=== PATIENT | female | born 1935 | race Caucasian/White ===

== ENCOUNTER → 2017-12-16 | Outpatient (CLI) | payer MEDICARE | LOC: PLAB 13:42 | PROVIDERS: ATTEND Family Medicine | DX: R41.3 Other amnesia (principal) ==

== ENCOUNTER 2017-12-23 12:01 | Emergency (ER) | payer MEDICARE ==
[2017-12-23 12:04] VITALS: BP 194/78; PULSE 66; RESP 20; TEMP 98.7; O2SAT 99
[2017-12-23] MEDS ORDERED: VITATAB43 PO (12:09)
[2017-12-23] MEDS ORDERED: COMB0.2S EACH EYE (12:09)
[2017-12-23] MEDS ORDERED: SODIUM CHLORIDE 0.9% FLUSH 10 ML FLUSH IV FLUSH PRN (12:15)
[2017-12-23 12:22] VITALS: O2SAT 95
[2017-12-23 12:24] LABS: AUTOMATED NEUTROPHIL # 4.2 TH/MM3 (1.8-7.7); BASOPHIL # 0.1 TH/MM3 (0-0.2); BASOPHIL % 0.7 % (0.0-2.0); EOSINOPHIL # 0.1 TH/MM3 (0-0.4); EOSINOPHIL % 0.7 % (0.0-4.0); HEMATOCRIT 36.7 % (35.0-46.0); HEMOGLOBIN 11.9 GM/DL (11.6-15.3); LYMPH % 32.9 % (9.0-44.0); LYMPHOCYTE # 2.6 TH/MM3 (1.0-4.8); MEAN CELL VOLUME 91.2 FL (80.0-100.0); MEAN CORPUSCULAR HEMOGLOBIN 29.5 PG (27.0-34.0); MEAN CORPUSCULAR HGB CONC 32.3 % (32.0-36.0); MEAN PLATELET VOLUME 8.7 FL (7.0-11.0); MONO % 10.6 % (0.0-8.0); MONOCYTE # 0.8 TH/MM3 (0-0.9); NEUT % 55.1 % (16.0-70.0); PLATELET COUNT 177 TH/MM3 (150-450); RED BLOOD COUNT 4.03 MIL/MM3 (4.00-5.30); RED CELL DISTRIBUTION WIDTH 12.5 % (11.6-17.2); WHITE BLOOD COUNT 7.8 TH/MM3 (4.0-11.0)
[2017-12-23 12:35] LABS: CHLORIDE 106 MEQ/L (98-107); SODIUM (NA) 140 MEQ/L (136-145)
[2017-12-23 12:38] LABS: CALCIUM 8.8 MG/DL (8.5-10.1); PROTHROMBIN TIME - PATIENT 10.4 SEC (9.8-11.6)
[2017-12-23 12:39] LABS: ALBUMIN 3.6 GM/DL (3.4-5.0); BICARBONATE 27.3 MEQ/L (21.0-32.0); BLOOD UREA NITROGEN 23 MG/DL (7-18); GLUCOSE,RANDOM 92 MG/DL (74-106)
[2017-12-23 12:42] LABS: ALT (GPT) 28 U/L (10-53); AST (GOT) 36 U/L (15-37); CREATININE 0.76 MG/DL (0.50-1.00); GLOMERULAR FILTRATION RATE 73 ML/MIN (>89)
[2017-12-23 12:43] LABS: TOTAL BILIRUBIN ADULT 1.1 MG/DL (0.2-1.0)
--- NOTE | 2017-12-23 12:44 | RADRPT ---
EXAM DATE/TIME: 12/23/2017 12:26 [facility] COMPARISON: No previous studies available for comparison. INDICATIONS : Left hand pain post fall. MEDICAL HISTORY : Dementia. SURGICAL HISTORY : None. ENCOUNTER: Initial ACUITY: 3 days PAIN SCORE: Non-responsive. LOCATION: Left hand FINDINGS: 3 views of the left hand demonstrate no fracture or dislocation. The bones are undermineralized. 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 There is mild osteoarthritis at the first carpometacarpal joint. No soft tissue ab normality or concerning radiopaque foreign body is present. A ring is present on the fourth digit. CONCLUSION: No acute left hand abnormality is identified. The bones are undermineralized and there is mild osteoa rthritis at multiple joint spaces, as above. Abdoulaye Barrera MD on December 23, 2017 at 12:39 Board Certified Radiologist. This report was verified electronically.
[2017-12-23 12:45] LABS: ALKALINE PHOSPHATASE 64 U/L (45-117)
--- NOTE | 2017-12-23 12:46 | RADRPT ---
EXAM DATE/TIME: 12/23/2017 12:26 [facility] COMPARISON: No previous studies available for comparison. INDICATIONS : Pain post fall. MEDICAL HISTORY : Dementia. SURGICAL HISTORY : None. ENCOUNTER: Initial ACUITY: 3 days PAIN SCORE: Non-responsive. LOCATION: chest FINDINGS: A single view of the chest demonstrates the lungs to be symmetrically aerated with a faint miliary pa ttern throughout both lungs. No confluent infiltrates. The cardiomediastinal contours are unremarkab le. Osseous structures are intact with a levoscoliosis of the thoracolumbar spine. CONCLUSION: 1. No acute fracture/cardiopulmonary process. 2. Faint miliary pattern throughout both lungs. Findings are nonspecific. No confluent infiltrate. N oncontrasted CT scan of the chest be obtained for further characterization if clinically warranted. Montrell Floyd MD on December 23, 2017 at 12:38 Board Certified Radiologist. This report was verified electronically.
[2017-12-23 12:47] LABS: TROPONIN I LESS THAN 0.02 NG/ML (0.02-0.05)
--- NOTE | 2017-12-23 13:06 | RADRPT ---
EXAM DATE/TIME: 12/23/2017 12:42 [facility] COMPARISON: No previous studies available for comparison. INDICATIONS : Frequent falls. Dementia. RADIATION DOSE: 59.34 CTDIvol (mGy) MEDICAL HISTORY : Dementia. SURGICAL HISTORY : None. ENCOUNTER: Initial ACUITY: 1 day PAIN SCALE: 0/10 LOCATION: cranial TECHNIQUE: Multiple contiguous axial images were obtained of the head. Using automated exposure control and adj ustment of the mA and/or kV according to patient size, radiation dose was kept as low as reasonably a chievable to obtain optimal diagnostic quality images. DICOM format image data is available electro nically for review and comparison. FINDINGS: CEREBRUM: There is moderate generalized atrophy. Ventricles are mildly enlarged but within the range of expecte d given the degree of atrophy. There is mild periventricular white matter low attenuation. No eviden ce of midline shift, mass lesion, hemorrhage or acute infarction. No extra-axial fluid collections a re seen. POSTERIOR FOSSA: The cerebellum and brainstem are intact. The 4th ventricle is midline. The cerebellopontine angle i s unremarkable. EXTRACRANIAL: Visualized sinuses are clear. SKULL: The calvaria is intact. No evidence of skull fracture. CONCLUSION: 1. No acute intracranial abnormality is identified. 2. Chronic findings include generalized atrophy and periventricular white matter changes characterist ic of chronic microvascular ischemia. Abdoulaye Barrera MD on December 23, 2017 at 13:02 Board Certified Radiologist. This report was verified electronically.
[2017-12-23 13:12] VITALS: BP 144/63; PULSE 50; RESP 20; O2SAT 99
[2017-12-23 13:37] LABS: BILIRUBIN, URINE NEG (NEG); BLOOD, URINE TRACE (NEG); GLUCOSE,URINE NEG (NEG); KETONE, URINE TRACE mg/dL (NEG); NITRITE,URINE NEG (NEG); PH, URINE 6.5 (5.0-8.5); URINE LEUKOCYTE ESTERASE NEG (NEG)
--- NOTE | 2017-12-23 13:42 | PD ---
HPI Chief Complaint: Fall Time Seen by Provider: 12:09 Travel History International Travel<30 days: No Contact w/Intl Traveler<30days: No Traveled to known affect area: No History of Present Illness HPI Patient is an 82-year-old female brought in by EMS due to bruising of her left hand. Patient has a history of dementia and is unable to provide any history. Her family member who lives with her, states that she has been falling frequently over the past 10 days. She is went to see her primary care physician who ordered a MRI of her brain, which she was supposed to have done today. He says that she has been following, frequently at night. He says he often wakes up and finds her on the floor. Today he found her left hand to be purple and was not sure what had happened. He says that she often fights with him when he tries to take her to the doctor or to have anything done. He says she has otherwise been acting normally, but her mental status seems to be declining quickly. He does say that she has urinated on herself when she has fallen. [facility] Past Medical History Dementia: Yes Glaucoma: Yes Social History Alcohol Use: No Tobacco Use: No Substance Use: No Allergies-Medications (Allergen,Severity, Reaction): Coded Allergies: No Known Allergies (Unverified , 12/23/17) Reported Meds & Prescriptions Reported Meds & Active Scripts Active Reported Vitamin H92-Gbbds Acid (Cobalamine Combinations) 500-400 Mcg Tab 1 Tab PO DAILY Combigan Opth Drops (Brimonidine-Timolol Opth Drops) 0.2-0.5% Soln 1 Drop EACH EYE Q12HR Review of Systems ROS Limitations: Other: (Dementia) Physical Exam Narrative GENERAL: Awake and alert, pleasantly confused. SKIN: Focused skin assessment warm/dry. Ecchymosis to the left lateral hand. HEAD: Atraumatic. Normocephalic. EYES: Pupils equal and round. No scleral icterus. Extraocular movements intact. ENT: Mucous membranes pink and moist. NECK: Trachea midline. No JVD. CARDIOVASCULAR: Regular rate and rhythm. No murmur appreciated. RESPIRATORY: No accessory muscle use. Clear to auscultation. Breath sounds equal bilaterally. GASTROINTESTINAL: Abdomen soft, non-tender, nondistended. MUSCULOSKELETAL: No obvious deformities. No clubbing. No cyanosis. 2+ edema bilateral edema of the lower extremities. NEUROLOGICAL: Awake and alert to person only. No obvious cranial nerve deficits. Motor grossly within normal limits. Normal speech. Data Data Last Documented VS Vital Signs Date Time Temp Pulse Resp B/P (MAP) Pulse Ox O2 Delivery O2 Flow Rate FiO2 12/23/17 13:12 50 20 144/63 (90) 99 12/23/17 12:04 98.7 Orders Orders Electrocardiogram (12/23/17 12:10) Complete Blood Count With Diff (12/23/17 12:10) Comprehensive Metabolic Panel (12/23/17 12:10) Creatine Kinase (Cpk) (12/23/17 12:10) Prothrombin Time / Inr (Pt) (12/23/17 12:10) Act Partial Throm Time (Ptt) (12/23/17 12:10) Troponin I (12/23/17 12:10) Urinalysis - C+S If Indicated (12/23/17 12:10) Chest, Single Ap (12/23/17 12:10) Ct Brain W/O Iv Contrast(Rout) (12/23/17 12:10) Blood Glucose (12/23/17 12:10) Ecg Monitoring (12/23/17 12:10) Iv Access Insert/Monitor (12/23/17 12:10) Oximetry (12/23/17 12:10) Sodium Chloride 0.9% Flush (Ns Flush) (12/23/17 12:15) Hand, Complete (Uyn7ehr) (12/23/17 ) CKMB (12/23/17 12:15) CKMB% (12/23/17 12:15) Labs Laboratory Tests Test 12/23/17 12:15 12/23/17 13:30 White Blood Count 7.8 TH/MM3 Red Blood Count 4.03 MIL/MM3 Hemoglobin 11.9 GM/DL Hematocrit 36.7 % Mean Corpuscular Volume 91.2 FL Mean Corpuscular Hemoglobin 29.5 PG Mean Corpuscular Hemoglobin Concent 32.3 % Red Cell Distribution Width 12.5 % Platelet Count 177 TH/MM3 Mean Platelet Volume 8.7 FL Neutrophils (%) (Auto) 55.1 % Lymphocytes (%) (Auto) 32.9 % Monocytes (%) (Auto) 10.6 % Eosinophils (%) (Auto) 0.7 % Basophils (%) (Auto) 0.7 % Neutrophils # (Auto) 4.2 TH/MM3 Lymphocytes # (Auto) 2.6 TH/MM3 Monocytes # (Auto) 0.8 TH/MM3 Eosinophils # (Auto) 0.1 TH/MM3 Basophils # (Auto) 0.1 TH/MM3 CBC Comment DIFF FINAL Differential Comment Prothrombin Time 10.4 SEC Prothromb Time International Ratio 1.0 RATIO Activated Partial Thromboplast Time 26.6 SEC Blood Urea Nitrogen 23 MG/DL Creatinine 0.76 MG/DL Random Glucose 92 MG/DL Total Protein 7.0 GM/DL Albumin 3.6 GM/DL Calcium Level 8.8 MG/DL Alkaline Phosphatase 64 U/L Aspartate Amino Transf (AST/SGOT) 36 U/L Alanine Aminotransferase (ALT/SGPT) 28 U/L Total Bilirubin 1.1 MG/DL Sodium Level 140 MEQ/L Potassium Level 3.7 MEQ/L Chloride Level 106 MEQ/L Carbon Dioxide Level 27.3 MEQ/L Anion Gap 7 MEQ/L Estimat Glomerular Filtration Rate 73 ML/MIN Total Creatine Kinase 287 U/L Creatine Kinase MB 9.4 NG/ML Creatine Kinase MB % 3.3 % Troponin I LESS THAN 0.02 NG/ML Urine Collection Type CATH Urine Color YELLOW Urine Turbidity CLEAR Urine pH 6.5 Urine Specific [place] 1.017 Urine Protein NEG mg/dL Urine Glucose (UA) NEG mg/dL Urine Ketones TRACE mg/dL Urine Occult Blood TRACE Urine Nitrite NEG Urine Bilirubin NEG Urine Leukocyte Esterase NEG Urine RBC 0-3 /hpf Urine Transitional Epithelial Cells 0-5 /hpf Urine Amorphous Sediment FEW Microscopic Urinalysis Comment CATH-CULT NOT IND Urine Collection Time 1335 MDM Medical Decision Making Medical Screen Exam Complete: Yes Emergency Medical Condition: Yes Medical Record Reviewed: Yes Interpretation(s) ECG shows NSR at 60, no ST elevation or depression Differential Diagnosis Worsening dementia versus electrolyte abnormality versus UTI versus hand fracture versus head injury Narrative Course Patient is an 82-year-old female brought in by EMS due to discoloration of the left hand. Exam shows some ecchymosis to the left hand. X-ray of the hand performed shows no acute abnormalities. IV established, labs sent. Labs show no acute abnormalities. CT head performed shows no acute abnormalities. Last [address] 12/23/17 1210 Signed Impressions: Service Date/Time: Saturday, December 23, 2017 12:42 - CONCLUSION: 1. No acute intracranial abnormality is identified. 2. Chronic findings include generalized atrophy and periventricular white matter changes characteristic of chronic microvascular ischemia. Abdoulaye Barrera MD Chest X-Ray 12/23/17 1210 Signed Impressions: Service Date/Time: Saturday, December 23, 2017 12:26 - CONCLUSION: 1. No acute fracture/cardiopulmonary process. 2. Faint miliary pattern throughout both lungs. Findings are nonspecific. No confluent infiltrate. Noncontrasted CT scan of the chest be obtained for further characterization if clinically warranted. Montrell Floyd MD Hand X-Ray 12/23/17 0000 Signed Impressions: Service Date/Time: Saturday, December 23, 2017 12:26 - CONCLUSION: No acute left hand abnormality is identified. The bones are undermineralized and there is mild osteoarthritis at multiple joint spaces, as above. Abdoulaye Barrera MD I discussed with the patient's , long-term care goals. He is going to speak with her primary care physician, Dr. Coyne regarding this. I suggested that perhaps he needs help in the home or to consider a long-term living facility. He says he is comfortable taking her home at this time. He will return anytime for any worsening symptoms. Diagnosis Primary Impression: Fall Qualified Codes: W19.XXXA - Unspecified fall, initial encounter Patient Instructions: Fall Prevention (ED), General Instructions Additional Instructions: Follow up with your primary care doctor. Return to the ED as needed for any worsening symptoms. Disposition: 01 DISCHARGE HOME Condition: Stable Kaylee Vu MD Dec 23, 2017 13:42
[2017-12-23 13:46] LABS: AMORPHOUS SEDIMENT, URINE FEW; RBC, URINE 0-3 /hpf (0-3); TRANSITIONAL EPI CELLS, URINE 0-5 /hpf; URINE COLOR YELLOW (YELLW/STRAW)
--- NOTE | 2017-12-24 22:15 | EKG ---
Date Performed: 12/23/2017 Time Performed: 12:21:31 PTAGE: 82 years EKG: Sinus rhythm POSSIBLE RIGHT VENTRICULAR CONDUCTION DELAY BORDERLINE ECG INTERPRETATION BASED ON A DEFAULT AGE OF 40 YEARS PREVIOUS TRACING : 04/23/2001 09.43 Since the prior tracing, there has been no significan t change DOCTOR: Arnie Boyce Interpretating Date/Time 12/24/2017 22:13:42
== END 2017-12-23 15:02 | disposition home or self-care (01) ==
LOC: PHED 12:01
DX: S60.222A Contusion of left hand, initial encounter (principal); W19.XXXA Unspecified fall, initial encounter; R94.31 Abnormal electrocardiogram [ECG] [EKG]; F03.90 Unspecified dementia, unspecified severity, without behavioral disturbance, psychotic disturbance, mood disturbance, and anxiety; H40.9 Unspecified glaucoma; R29.6 Repeated falls
CPT/HCPCS: 70450; 71045; 73130; 80053; 81001; 82550; 82552; 84484; 85025; 85610; 85730; 93005; 99285